=== PATIENT | male | born 1950 | race Caucasian/White ===

== ENCOUNTER 2022-03-07 19:57 | Emergency (ER) | payer MEDICARE, OTHER | END 2022-03-08 17:06 | disposition home or self-care (01) | LOC: ER1 19:57 | DX: R26.89 Other abnormalities of gait and mobility (principal); Z65.5 Exposure to disaster, war and other hostilities; E78.5 Hyperlipidemia, unspecified; I12.9 Hypertensive chronic kidney disease with stage 1 through stage 4 chronic kidney disease, or unspecified chronic kidney disease; E11.22 Type 2 diabetes mellitus with diabetic chronic kidney disease; Z86.73 Personal history of transient ischemic attack (TIA), and cerebral infarction without residual deficits; Z95.0 Presence of cardiac pacemaker; Z95.1 Presence of aortocoronary bypass graft | CPT/HCPCS: 99284 ==